=== PATIENT | female | born 1985 | race Caucasian/White ===

== ENCOUNTER → 2017-11-17 | Day surgery (SDC) | payer MEDICARE ==
[2017-11-11 15:11] LABS: BASOPHILS # (AUTO) 0.1 (0.0-0.1); BASOPHILS % 0.5 % (0.0-1.0); EOSINOPHILS # (AUTO) 0.2 (0.0-0.4); EOSINOPHILS % 1.9 % (0.0-6.0); HEMATOCRIT 35.8 % (34.2-44.1); HEMOGLOBIN 10.9 g/dL (12.0-16.0); LYMPHOCYTES # (AUTO) 2.9 (1.0-3.2); LYMPHOCYTES % 24.9 % (18.0-39.1); MEAN CORPUSCULAR HEMOGLOBIN 24.8 pg (28-32); MEAN CORPUSCULAR HGB CONC 30.4 g/dL (31-35); MEAN CORPUSCULAR VOLUME 81.4 fL (81-99); MONOCYTES # (AUTO) 0.7 (0.2-0.8); MONOCYTES % 5.8 % (4.4-11.3); NEUTROPHILS # (AUTO) 7.8 (2.1-6.9); NEUTROPHILS % 66.6 % (38.7-80.0); PLATELET COUNT 337 x10e3/uL (140-360); RED CELL DISTRIBUTION WIDTH 15.7 % (11.7-14.4)
[2017-11-11 15:16] LABS: BILIRUBIN,URINE NEGATIVE (NEGATIVE); CLARITY,URINE CLEAR (CLEAR); COLOR,URINE YELLOW (YELLOW); KETONES,URINE NEGATIVE (NEGATIVE); LEUKOCYTE ESTERASE ,URINE TRACE (NEGATIVE); NITRITE,URINE NEGATIVE (NEGATIVE); PROTEIN,URINE DIPSTICK NEGATIVE (NEGATIVE); URINE UROBILINOGEN 0.2 mg/dL (0.2 - 1)
[~2017-11-17] MED LIST: ALIGN4 MG; ANUSOL-HC25 MG RC; ATARAX PO; CARAFATE1 GM PO; CARAFATE1 GM/10 ML PO; CULTURELLE1 EACH PO; DICYCLOMINE HCL10 MG; FENTANYL CITRATE/PF 100MCG/2 ML INJ ONE; HYDROXYZINE HCL25 MG PO; INVEGA SUS156 MG/1 M IM; INVEGA6 MG; INVEGA9 MG PO; LAMICTAL100 MG; LAMICTAL100 MG PO; LIDOCAINE HCL 2% LOCAL INJ 5 ML SDV VIAL INJ ONE; LINZESS; MIDAZOLAM HCL 2 MG/2 ML VIAL ONE; MONTELUKAST SOD10 MG PO; PROPOFOL IV EMULSION 10 MG/ML 50 ML VIAL ONE; RITALIN10 MG PO; SUCRALFATE1 GM PO; atarax PO
--- OUTSIDE RECORDS SUMMARY | 2017-11-17 13:26 | XMS REPORT ---
Author Author Admin, [place] Organization [facility] Contact Center Address Unknown Phone Unavailable Allergies, Adverse Reactions, Alerts Allergy Name Reaction Description Start Date Severity Status Provider DEPAKOTE Critical Active Trixie Law MD CODEINE Critical Active Trixie Law MD Conditions or Problems Problem Name Problem Code Onset Date Status Entry Date Provider Comment Standard Description Annotate Leukocytosis 288.60 Active Tien Moody MD Leukocytosis, unspecified Contraception management V25.09 Active Trixie Law MD Encounter for other general counseling and advice on contraceptive management Fatigue 780.79 Active Tien Moody MD Other malaise and fatigue Menorrhagia 626.2 Active Tien Moody MD Excessive or frequent menstruation Abnormal uterine bleeding 626.9 Active Trixie Law MD Unspecified disorders of menstruation and other abnormal bleeding from female genital tract Chlamydia cervicitis 099.53 Active Trixie Law MD 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 MORBID OBESITY Active Trixie Law MD Morbid obesity Otitis externa 380.10 Active Tien Moody MD Infective otitis externa, unspecified Acne, mild 706.1 Active Tien Moody MD Other acne Elevated blood pressure 796.2 Active Tien Moody MD Elevated blood pressure reading without diagnosis of hypertension Vaccination Against Influenza V04.81 Active Tien Moody MD Need for prophylactic vaccination and inoculation against influenza Abnormal uterine bleeding 626.9 Active Trixie Law MD Unspecified disorders of menstruation and other abnormal bleeding from female genital tract Vaginal discharge 623.5 Active Trixie Law MD Leukorrhea, not specified as infective ADHD 314.01 Active Trixie Law MD Attention deficit disorder of childhood with hyperactivity Motor [employer] well woman exam V72.31 Active Trixie Law MD Routine gynecological examination Seizure 780.39 Active Trixie Law MD Other convulsions Medication List Medication Instructions Start Date Stop Date Generic Name NDC Status Provider Patient Instruction SPRINTEC 28 0.25-35 MG-MCG ORAL TABLET 1 By Mouth Every daily NORGESTIMATE-ETH ESTRADIOL 78004201109 Active Trixie Law MD Active CORTISPORIN 3.5-70433-0 OTIC SOLUTION 4 drops in affected ear QID [id number]-[id number]-NA 76461813851 Active Tien Moody MD Active DOXYCYCLINE MONOHYDRATE 100 MG ORAL CAPSULE 1 By Mouth BID DOXYCYCLINE MONOHYDRATE 69461773988 Active Trixie Law MD Active ADDERALL 15 MG ORAL TABLET AMPHETAMINE-DEXTROAMPHETAMINE 23097485223 Active Trixie Law MD Active LAMICTAL ODT 200 MG ORAL TABLET DISINTEGRATING LAMOTRIGINE 15165842190 Active Trixie Law MD Active MINASTRIN 24 FE 1-20 MG-MCG(24) ORAL TABLET CHEWABLE 1 By Mouth Every daily MINASTRIN 24 FE 1-20 MG-MCG(24) ORAL TABLET CHEWABLE 1255874 NORETHIN SAAD-ETH ESTRAD-FE Inactive MINASTRIN 24 FE 1-20 MG-MCG(24) ORAL TABLET CHEWABLE 1 By Mouth Every daily NORETHIN SAAD-ETH ESTRAD-FE 16258379448 No Longer Active Trixie Law MD Active Immunizations Vaccine Administration Date Value Standard Description influenza immunization (Flu Vax) has been administered given influenza virus vaccine, unspecified formulation Vital Signs Date Name Value Unit Range Description blood pressure, diastolic 81 mm[Hg] BP lopez blood pressure, systolic 135 mm[Hg] BP sys height E&M 69 [in_us] Bdy height pulse rate E&M 74 /min Heart rate respiratory rate E&M 17 /min Resp rate temperature E&M 97.9 [degF] Body temperature weight E&M 276 [lb_av] Weight Measured blood pressure, diastolic 84 mm[Hg] BP lopez blood pressure, systolic 130 mm[Hg] BP sys height E&M 69 [in_us] Bdy height pulse rate E&M 85 /min Heart rate respiratory rate E&M 18 /min Resp rate temperature E&M 98.3 [degF] Body temperature weight E&M 284.13 [lb_av] Weight Measured blood pressure, diastolic 74 mm[Hg] BP lopez blood pressure, systolic 126 mm[Hg] BP sys height E&M 69 [in_us] Bdy height pulse rate E&M 81 /min Heart rate respiratory rate E&M 18 /min Resp rate temperature E&M 97.7 [degF] Body temperature weight E&M 278 [lb_av] Weight Measured blood pressure, diastolic 85 mm[Hg] BP lopez blood pressure, systolic 135 mm[Hg] BP sys height E&M 69 [in_us] Bdy height pulse rate E&M 82 /min Heart rate respiratory rate E&M 18 /min Resp rate temperature E&M 98.5 [degF] Body temperature weight E&M 282.40 [lb_av] Weight Measured blood pressure, diastolic 85 mm[Hg] BP lopez blood pressure, systolic 129 mm[Hg] BP sys height E&M 69 [in_us] Bdy height pulse rate E&M 86 /min Heart rate respiratory rate E&M 18 /min Resp rate temperature E&M 97.5 [degF] Body temperature weight E&M 284.13 [lb_av] Weight Measured blood pressure, diastolic 84 mm[Hg] BP lopez blood pressure, systolic 142 mm[Hg] BP sys height E&M 69 [in_us] Bdy height pulse rate E&M 73 /min Heart rate respiratory rate E&M 18 /min Resp rate temperature E&M 97.9 [degF] Body temperature weight E&M 280.50 [lb_av] Weight Measured blood pressure, diastolic 86 mm[Hg] BP lopez blood pressure, systolic 133 mm[Hg] BP sys height E&M 69 [in_us] Bdy height pulse rate E&M 69 /min Heart rate respiratory rate E&M 18 /min Resp rate temperature E&M 97.5 [degF] Body temperature weight E&M 281 [lb_av] Weight Measured blood pressure, diastolic 81 mm[Hg] BP lopez blood pressure, systolic 138 mm[Hg] BP sys height E&M 69 [in_us] Bdy height pulse rate E&M 79 /min Heart rate respiratory rate E&M 18 /min Resp rate temperature E&M 98.1 [degF] Body temperature weight E&M 275 [lb_av] Weight Measured blood pressure, diastolic 86 mm[Hg] BP lopez blood pressure, systolic 130 mm[Hg] BP sys height E&M 69 [in_us] Bdy height pulse rate E&M 81 /min Heart rate respiratory rate E&M 18 /min Resp rate temperature E&M 98.2 [degF] Body temperature weight E&M 274 [lb_av] Weight Measured blood pressure, diastolic 81 mm[Hg] BP lopez blood pressure, systolic 134 mm[Hg] BP sys height E&M 69 [in_us] Bdy height pulse rate E&M 68 /min Heart rate respiratory rate E&M 18 /min Resp rate temperature E&M 98.4 [degF] Body temperature weight E&M 265.50 [lb_av] Weight Measured blood pressure, diastolic 81 mm[Hg] BP lopez blood pressure, systolic 130 mm[Hg] BP sys height E&M 69 [in_us] Bdy height pulse rate E&M 67 /min Heart rate respiratory rate E&M 17 /min Resp rate temperature E&M 98.0 [degF] Body temperature weight E&M 270.38 [lb_av] Weight Measured Diagnostic Results Date Name Value Unit Range Description Office Visit: Annual / Family Planning Female Rm#2 - Urinalysis urobilinogen, urine, semiquantitative (dipstick) negative Lab Report: CBC With Differential/Platelet - Hematology basophils as percent of blood leukocytes 0 % Not Estab. Office Visit: Annual / Family Planning Female Rm#2 - Urinalysis pH, urine, semiquantitative 5.0 Lab Report: CBC With Differential/Platelet - Hematology lymphocyte count, blood, automated 2.8 X10E3/UL 10*3/mm3 0.7- 3.1 Office Visit: Annual / Family Planning Female Rm#2 - Urinalysis bilirubin, urine negative Lab Report: CBC With Differential/Platelet - Hematology monocyte count, blood, automated 1.0 X10E3/UL 10*3/uL 0.1-0.9 Lab Report: CBC With Differential/Platelet - Chemistry immature granulocytes, percentage of total cells, blood 0 % Not Estab. Lab Report: CBC With Differential/Platelet - Hematology mean corpuscular volume, RBC 81 fL 79-97 lymphocytes as percent of blood leukocytes 17 % Not Estab. erythrocyte (RBC) count 4.61 X10E6/UL 10*6/mm3 3.77-5.28 Office Visit: Annual / Family Planning Female Rm#2 - Urinalysis appearance, urine clear Lab Report: CBC With Differential/Platelet - Hematology platelet count 420 X10E3/UL 10*3/mm3 048-842 9336/04/06 red blood cell distribution width 14.2 % 12.3-15.4 Lab Report: Ct, Ng, Trich vag by BRENDA - Lab chlamydia DNA probe Negative Negative Lab Report: Ct, Ng, Trich vag by BRENDA - Microbiology Neisseria gonorrhoeae DNA probe Negative Negative Office Visit: Annual / Family Planning Female Rm#2 - Urinalysis glucose, urine, semiquantitative negative Lab Report: CBC With Differential/Platelet - Hematology eosinophils as percent of blood leukocytes 2 % Not Estab. Lab Report: CBC With Differential/Platelet - Chemistry Absolute Neutrophils 11.7 X10E3/UL 10*3/uL 1.4-7.0 Lab Report: CBC With Differential/Platelet - Hematology basophil count, absolute 0.1 x10E3/uL 0.0-0.2 Office Visit: Annual / Family Planning Female Rm#2 - Urinalysis ketones, urine, by test strip negative Lab Report: CBC With Differential/Platelet - Hematology Eosinophil Absolute Count 0.4 X10E3/UL 10*3/uL 0.0-0.4 Office Visit: Annual / Family Planning Female Rm#2 - Urinalysis nitrite, urine, semiquantitative negative Lab Report: CBC With Differential/Platelet - Hematology monocytes as percent of blood leukocytes 7 % Not Estab. Office Visit: Annual / Family Planning Female Rm#2 - Urinalysis specific gravity, urine 1.020 Lab Report: CBC With Differential/Platelet - Hematology mean corpuscular hemoglobin, RBC 26.0 pg 26.6-33.0 Lab Report: Vaginitis/Vaginosis, DNA Probe, Ct, Ng, Trich vag by BRENDA - Urinalysis trichomonas vaginalis, urine Negative Negative Lab Report: CBC With Differential/Platelet - Hematology mean corpuscular hemoglobin concentration, RBC 32.3 G/DL % 31.5- 35.7 Office Visit: Annual / Family Planning Female Rm#2 - Urinalysis leukocyte esterase, urine, by dipstick negative Lab Report: CBC With Differential/Platelet - Hematology hemoglobin, blood 12.0 g/dL 11.1-15.9 neutrophils as percent of blood leukocytes 74 % Not Estab. leukocyte count, blood 16.0 X10E3/UL 10*3/mm3 3.4-10.8 Office Visit: Annual / Family Planning Female Rm#2 - Urinalysis protein, urine, semiquantitative (dipstick) negative Lab Report: CBC With Differential/Platelet - Hematology hematocrit, blood 37.1 % 34.0-46.6 Office Visit: Annual / Family Planning Female Rm#2 - Urinalysis blood in urine (hemoglobin) by dipstick negative Lab Report: CBC With Differential/Platelet, TSH - Chemistry thyroid stimulating hormone, serum 1.110 u[iU]/mL 0.450-4.500 Office Visit: Annual / Family Planning Female Rm#2 - Urinalysis urine color yellow Encounters Date Encounter Provider Code Facility 09:29:08 CDT Est Patient Problem Focus - 62727 Trixie Law MD CPT-61155 [facility] 10:46:37 CDT Est Patient Problem Focus - 68434 Trixie Law MD CPT-37036 [facility] 12:16:47 CDT Est Patient Exp Problem - 08173 Tien Moody MD CPT-27195 [facility] 15:30:05 CDT Est Patient Problem Focus - 71377 Trixie Law MD CPT-32263 [facility] 16:23:02 CDT Est Patient Exp Problem - 52632 Tien Moody MD CPT-86313 [facility] 15:41:00 CDT Est Patient Problem Focus - 10115 Trixie Law MD CPT-33351 [facility] 15:50:32 CONVEYOR OPERATOR Est Patient Exp Problem - 52045 Tien Moody MD CPT-64827 [facility] 15:34:21 CONVEYOR OPERATOR Est Patient Exp Problem - 11242 Tien Moody MD CPT-78655 [facility] 15:25:54 CONVEYOR OPERATOR Est Patient Exp Problem - 21951 Tien Moody MD CPT-72810 [facility] 15:40:14 CONVEYOR OPERATOR Est Patient Problem Focus - 58016 Trixie Law MD CPT-34721 [facility] Procedures Code Procedure Name Date Entry Date Standard Description CPT-75017 IM or SQ Injection 10:46:37 CDT CPT-J1050 Injection, medroxyprogesterone acetate (Depo), 150 mg 10 :46:37 CDT CPT-43693 Admin of Vaccine - Injection - 1 15:25:35 CONVEYOR OPERATOR CPT-10406 INFLUENZA VACCINE QUADRIVALENT 3 YRS PLUS IM 15:25:35 CONVEYOR OPERATOR CPT-50301 Urinalysis - Dip only - In House 15:31:06 CDT CPT-71678 New Patient Well Exam (18 - 39 Yrs) - [id number] 15:31:06 CDT
--- NOTE | 2017-11-17 16:29 | Operative Report ---
DATE OF PROCEDURE: November 17, 2017 REFERRING PHYSICIAN: Dr. Dougie Jackson PROCEDURE PERFORMED: Esophagogastroduodenoscopy with esophageal dilatation and biopsies. INDICATIONS FOR EGD: Dysphagia, nausea, vomiting, history of hematemesis. MEDICATION: Patient was done under MAC. Please see anesthesiologist's note. PROCEDURE: With the patient in the left lateral decubitus position, the flexible fiberoptic Olympus gastroscope was introduced into the esophagus under direct visualization without any difficulty. There was some patchy erythema noted in the distal esophagus. There was a mild stricture noted at the GE junction that was dilated to size 52-Upper Sorbian Lange. The scope was then advanced with ease into the stomach, and patient is status post Prashant-en-Y. There was an approximately 8-mm nodule at the anastomosis, which was biopsied. The anastomosis appeared intact. An approximately 1 cm marginal ulcer with black exudate and a crater compatible with recent hemorrhage was noted. There was no active bleeding. The enteric loop was patent. The scope was then retroflexed into the gastric stump. The cardia appeared to be within normal limits. The scope was then straightened out. It was subsequently withdrawn. Patient tolerated the procedure well. IMPRESSION 1. Distal esophagitis, mild. 2. Esophageal stricture at gastroesophageal junction, dilated to a size 52-Upper Sorbian Lange. 3. Status post Prashant-en-Y anastomosis intact. 4. Approximately, 8-mm nodule anastomosis, biopsied. 5. Approximately, 1 cm marginal ulcer with stigmata of recent hemorrhage. There was no active bleeding. PLAN: Follow up histology. Initiate Protonix 40 mg 1 p.o. a.c. b.i.d. Continue Carafate 1 g p.o. a.c. t.i.d. and at bedtime. Job#: [id number] RI cc:DOUGIE JACKSON DO
== END | disposition home or self-care (01) ==
LOC: OR 13:23
PROVIDERS: ATTEND Internal Medicine Gastroenterology
DX: K22.2 Esophageal obstruction (principal); K25.9 Gastric ulcer, unspecified as acute or chronic, without hemorrhage or perforation; K31.89 Other diseases of stomach and duodenum; K20.9 Esophagitis, unspecified; K21.9 Gastro-esophageal reflux disease without esophagitis; Z98.84 Bariatric surgery status; K58.9 Irritable bowel syndrome, unspecified; G40.909 Epilepsy, unspecified, not intractable, without status epilepticus; N20.0 Calculus of kidney; F31.9 Bipolar disorder, unspecified; F20.9 Schizophrenia, unspecified; F41.9 Anxiety disorder, unspecified; Z88.5 Allergy status to narcotic agent; Z88.8 Allergy status to other drugs, medicaments and biological substances; Z01.812 Encounter for preprocedural laboratory examination; Z68.39 Body mass index [BMI] 39.0-39.9, adult; Z87.440 Personal history of urinary (tract) infections
CPT/HCPCS: 36415; 43239; 43450; 81003; 81025; 85025; 88305; 88312; J2001; J2250

== ENCOUNTER 2017-11-23 15:27 | Emergency (ER) | payer MEDICARE ==
[~2017-11-23] VITALS: Ht 175.3 cm; Wt 108.9 kg
[~2017-11-23 15:27] MED LIST changes: -FENTANYL CITRATE/PF 100MCG/2 ML INJ ONE; -LIDOCAINE HCL 2% LOCAL INJ 5 ML SDV VIAL INJ ONE; -MIDAZOLAM HCL 2 MG/2 ML VIAL ONE; -PROPOFOL IV EMULSION 10 MG/ML 50 ML VIAL ONE
--- OUTSIDE RECORDS SUMMARY | 2017-11-23 15:30 | XMS REPORT ---
Author Author Admin, [place] Organization [facility] Contact Center Address Unknown Phone Unavailable [...] Attention deficit disorder of childhood with hyperactivity Water Pl[employer] well woman exam V72.31 Active Trixie Law MD Routine gynecological examination Seizure 780.39 Active Trixie Law MD Other convulsions Medication List Medication Instructions Start Date Stop Date Generic Name NDC Status Provider Patient Instruction SPRINTEC 28 0.25-35 MG-MCG ORAL TABLET 1 By Mouth Every daily NORGESTIMATE-ETH ESTRADIOL 36802441407 Active Trixie Law MD Active CORTISPORIN 3.5-89855-0 OTIC SOLUTION 4 drops in affected ear QID [id number]-[id number] 71774648642 Active Tien Moody MD Active DOXYCYCLINE MONOHYDRATE 100 MG ORAL CAPSULE 1 By Mouth BID DOXYCYCLINE MONOHYDRATE 35544192510 Active Trixie Law MD Active ADDERALL 15 MG ORAL TABLET AMPHETAMINE-DEXTROAMPHETAMINE 62058116060 Active Trixie Law MD Active LAMICTAL ODT 200 MG ORAL TABLET DISINTEGRATING LAMOTRIGINE 41092190131 Active Trixie Law MD Active MINASTRIN 24 FE 1-20 MG-MCG(24) ORAL TABLET CHEWABLE 1 By Mouth Every daily MINASTRIN 24 FE 1-20 MG-MCG(24) ORAL TABLET CHEWABLE 7635968 NORETHIN SAAD-ETH ESTRAD-FE Inactive MINASTRIN 24 FE 1-20 MG-MCG(24) ORAL TABLET CHEWABLE 1 By Mouth Every daily NORETHIN SAAD-ETH ESTRAD-FE 60805513346 No Longer Active Trixie Law MD Active [...] - Hematology platelet count 420 X10E3/UL 10*3/mm3 377-863 7546/04/06 red blood cell distribution width 14.2 % [...] 09:29:08 CDT Est Patient Problem Focus - 11257 Trixie Law MD CPT-94156 [facility] 10:46:37 CDT Est Patient Problem Focus - 35143 Trixie Law MD CPT-13788 [facility] 12:16:47 CDT Est Patient Exp Problem - 21529 Tien Moody MD CPT-53341 [facility] 15:30:05 CDT Est Patient Problem Focus - 15179 Trixie Law MD CPT-12720 [facility] 16:23:02 CDT Est Patient Exp Problem - 05499 Tien Moody MD CPT-61670 [facility] 15:41:00 CDT Est Patient Problem Focus - 26008 Trixie Law MD CPT-24028 [facility] 15:50:32 EMERGENCY DOCTOR Est Patient Exp Problem - 31162 Tien Moody MD CPT-94929 [facility] 15:34:21 EMERGENCY DOCTOR Est Patient Exp Problem - 93483 Tien Moody MD CPT-47372 [facility] 15:25:54 EMERGENCY DOCTOR Est Patient Exp Problem - 30477 Tien Moody MD CPT-58879 [facility] 15:40:14 EMERGENCY DOCTOR Est Patient Problem Focus - 01643 Trixie Law MD CPT-99540 [facility] Procedures Code Procedure Name Date Entry Date Standard Description CPT-16667 IM or SQ Injection 10:46:37 CDT CPT-J1050 Injection, medroxyprogesterone acetate (Depo), 150 mg 10 :46:37 CDT CPT-15245 Admin of Vaccine - Injection - 1 15:25:35 EMERGENCY DOCTOR CPT-68343 INFLUENZA VACCINE QUADRIVALENT 3 YRS PLUS IM 15:25:35 EMERGENCY DOCTOR CPT-18944 Urinalysis - Dip only - In House 15:31:06 CDT CPT-57543 New Patient Well Exam (18 - 39 Yrs) - [id number] 15:31:06 CDT
[2017-11-23 16:46] LABS: BILIRUBIN,URINE NEGATIVE (NEGATIVE); CLARITY,URINE CLEAR (CLEAR); COLOR,URINE STRAW (YELLOW); KETONES,URINE NEGATIVE (NEGATIVE); LEUKOCYTE ESTERASE ,URINE TRACE (NEGATIVE); NITRITE,URINE NEGATIVE (NEGATIVE); PROTEIN,URINE DIPSTICK NEGATIVE (NEGATIVE); URINE UROBILINOGEN 0.2 mg/dL (0.2 - 1)
[2017-11-23 16:47] LABS: PREGNANCY TEST, URINE NEGATIVE (NEGATIVE)
[2017-11-23 16:55] LABS: EPITHELIAL CELLS,URINE MODERATE /LPF
[2017-11-23 16:57] LABS: BACTERIA,URINE FEW /HPF; RBC,URINE 0-5 /HPF (0-5); WBC,URINE (MAN) 0-5 /HPF (0-5)
[2017-11-23] MEDS ORDERED: MECLIZINE HCL 12.5 MG TAB PO ONE (19:30)
[2017-11-23] MEDS ORDERED: ONDANSETRON HCL 4 MG ORAL DISINTEGRATING TAB PO ONE (19:30)
--- NOTE | 2017-11-23 19:31 | Diagnostic Imaging Report ---
History: Headache Comparison studies: None Technique: Axial images were obtained from the skull base to the vertex. Coronal and sagittal reconstructions obtained from the axial data. Findings: Scalp/skull: No abnormalities. No fractures, blastic or lytic lesions. Extra-axial spaces: No masses. No fluid collections. Brain sulci: Appropriate for age. Ventricles: Normal in size and configuration. No hydrocephalus. Parenchyma: No abnormal densities. Linear streak artifact over the left parieto-occipital region which is not to be mistaken for subarachnoid hemorrhage. No masses, hemorrhage, acute or chronic cortical vascular insults. Sellar/suprasellar region: No abnormalities Craniocervical junction: Mildly low-lying right cerebellar tonsil without Chiari one malformation. IMPRESSION: No acute abnormalities. Preliminary report provided by Dr. Ab Maravilla on 11/23/2017 at 1903 hours. The images and preliminary report were reviewed and signed by Dr. Karen Hernandez, neuroradiology faculty, on 11/23/2017 at 1927 hours. Signed by: Dr. Karen Hernandez M.D. on 11/23/2017 7:27 PM
[2017-11-23] MEDS ORDERED: SODIUM CHLORIDE 0.9% 1000ML 1,000 ML IV ONE (19:45)
[2017-11-23 19:48] LABS: HEMATOCRIT 33.5 % (34.2-44.1); HEMOGLOBIN 10.5 g/dL (12.0-16.0); MEAN CORPUSCULAR HEMOGLOBIN 25.7 pg (28-32); MEAN CORPUSCULAR HGB CONC 31.3 g/dL (31-35); MEAN CORPUSCULAR VOLUME 81.9 fL (81-99); PLATELET COUNT 303 x10e3/uL (140-360); RED BLOOD COUNT 4.09 x10e6/uL (3.6-5.1); RED CELL DISTRIBUTION WIDTH 16.3 % (11.7-14.4)
[2017-11-23 19:49] LABS: BASOPHILS # (AUTO) 0.1 (0.0-0.1); BASOPHILS % 0.5 % (0.0-1.0); EOSINOPHILS # (AUTO) 0.4 (0.0-0.4); EOSINOPHILS % 3.5 % (0.0-6.0); LYMPHOCYTES # (AUTO) 2.8 (1.0-3.2); LYMPHOCYTES % 26.1 % (18.0-39.1); MONOCYTES # (AUTO) 0.8 (0.2-0.8); MONOCYTES % 6.9 % (4.4-11.3); NEUTROPHILS # (AUTO) 6.8 (2.1-6.9); NEUTROPHILS % 62.7 % (38.7-80.0)
[2017-11-23 20:39] LABS: ALANINE AMINOTRANSFERASE 18 IU/L (0-55); ANION GAP 13.6 mmol/L (8-16); BLOOD UREA NITROGEN 11 mg/dL (7-26); BUN/CREATININE RATIO 14 (6-25); CALCIUM 9.4 mg/dL (8.4-10.2); CARBON DIOXIDE 22 mmol/L (22-29); CHLORIDE 107 mmol/L (98-107); CREATININE, SERUM 0.78 mg/dL (0.57-1.11); EST GLOMERULAR FILTRATION RATE > 60 ML/MIN (60-); GLUCOSE 74 mg/dL (74-118); POTASSIUM 3.6 mmol/L (3.5-5.1); SODIUM 139 mmol/L (136-145)
[2017-11-23 20:40] LABS: ALBUMIN 3.7 g/dL (3.5-5.0); ALBUMIN/GLOBULIN RATIO 1.2 (0.8-2.0); ALKALINE PHOSPHATASE 89 IU/L (40-150); LIPASE 10 U/L (8-78); THYROID STIMULATING HORMONE 1.329 uIU/mL (0.350-4.940)
[2017-11-23 20:52] VITALS: BP 121/72
--- NOTE | 2017-11-23 21:15 | Diagnostic Imaging Report ---
RADIOGRAPH(S) OF THE ABDOMEN AND PELVIS, 3 view(s) HISTORY: Abdominal pain, ulcer COMPARISON: None available. FINDINGS: Artifacts project at the left upper quadrant the abdomen. No specific evidence of obstruction or ileus. No definite urinary tract calcification. Metallic surgical clips within the upper abdomen. The liver shadow appears prominent. The bones are partially obscured by stool and overlying bowel gas. IMPRESSION: Nonobstructive bowel gas pattern. Signed by: Dr. William Swanson D.O., M.M.M. on 11/23/2017 9:11 PM
== END 2017-11-23 21:07 | disposition home or self-care (01) ==
LOC: ER 15:27
DX: R42 Dizziness and giddiness (principal); R11.0 Nausea; H81.12 Benign paroxysmal vertigo, left ear; F20.9 Schizophrenia, unspecified; F41.9 Anxiety disorder, unspecified
CPT/HCPCS: 36415; 70450; 74022; 80053; 81001; 81025; 83690; 84443; 85025; 87086; 99283; J7030

== ENCOUNTER → 2020-03-10 | Day surgery (SDC) | payer MEDICARE, OTHER ==
[~2020-03-10] MED LIST changes: +FENTANYL CITRATE/PF 100MCG/2 ML INJ ONE; +GLUCAGON FOR INJ 1 MG VIAL ONE; +HYOSCYAMINE 0.125 MG TAB ONE; +INVEGA SUS234 MG/1.5 INJ; +INVEGA6 MG PO; +IRON PO; +MIDAZOLAM HCL 2 MG/2 ML VIAL ONE; +PROPOFOL IV EMULSION 10 MG/ML 20 ML VIAL ONE
[2020-03-10 13:40] VITALS: BP 123/68
--- NOTE | 2020-03-10 14:20 | Operative Report ---
DATE OF PROCEDURE: 03/10/2020 SURGEON: Hector Garcia MD PROCEDURES: EGD with biopsies and colonoscopy with biopsies. INDICATIONS FOR EGD: Heartburn, bloating, vomiting. INDICATIONS FOR COLONOSCOPY: Lower abdominal pain, diarrhea. MEDICATIONS: The patient was done under MAC, please see anesthesiologist's note. PROCEDURE IN DETAIL: With the patient in the left lateral decubitus position, a flexible fiberoptic Olympus gastroscope was introduced into the esophagus under direct visualization without any difficulty. The esophagus appeared to be within normal limits. The scope was then advanced with ease into the stomach and the patient is status post Prashant-en-Y. There was some evidence of mild inflammatory changes in the gastric stump and biopsies were obtained. Anastomosis was intact and was patent, and there was a minute nodule noted at the anastomosis that was biopsied. The scope was subsequently withdrawn and the patient tolerated the procedure well. IMPRESSION: 1. Normal esophagus. 2. Gastric stump gastritis, biopsied. 3. Status post Prashant-en-Y. 4. Minute nodule anastomosis, biopsied. PLAN: Follow up histology. Initiate Protonix 40 mg one p.o. q.a.m. before meals. Continue Carafate 1 g p.o. before meals t.i.d. and at bedtime. The patient was then turned around and after adequate lubrication of the anal canal, a flexible fiberoptic Olympus colonoscope was inserted into the rectum with ease and advanced all the way to the cecum. Prep overall was suboptimal to poor with [id number] amount of retained fecal material in the colon. Whatever was visualized, the mucosa overlying the cecum appeared to be within normal limits. The ileocecal valve was intubated and the scope was advanced into the terminal ileum. Two aphthous-like ulcers were noted and biopsies were obtained. The scope was then withdrawn back into the colon. It was then withdrawn slowly and whatever was visualized the mucosa overlying the ascending, transverse, descending, sigmoid, and rectum revealed some patchy mild inflammatory changes and biopsies were obtained. The scope was then retroflexed into the distal rectum and the area around the dentate line appeared to be within normal limits. The scope was then straightened out and it was subsequently withdrawn after securing an adequate stool specimen that was sent for the appropriate stool studies. The patient tolerated the procedure well. IMPRESSION: 1. Suboptimal to poor prep. 2. Mild patchy colitis. 3. Proctitis, mild. PLAN: Follow up histology. Follow up stool studies. Initiate Bentyl 20 mg one p.o. t.i.d. Check IBD panel, CRP, and sedimentation rate. MD ARNOLDO Chanel/MODL /[id number] cc: Anish Vo DO
[2020-03-10 14:52] LABS: WBC,FECAL (FECAL LACTOFERRIN) POSITIVE (NEGATIVE)
[2020-03-11 06:32] LABS: C DIFFICILE TOXIN A&B AMP PROB NEGATIVE (NEGATIVE)
== END | disposition home or self-care (01) ==
LOC: OR 09:28
PROVIDERS: ATTEND Internal Medicine Gastroenterology
DX: K52.9 Noninfective gastroenteritis and colitis, unspecified (principal); Z86.010 Personal history of colon polyps; K29.50 Unspecified chronic gastritis without bleeding; K20.8 Other esophagitis; K31.89 Other diseases of stomach and duodenum; K62.89 Other specified diseases of anus and rectum; K21.9 Gastro-esophageal reflux disease without esophagitis; K44.9 Diaphragmatic hernia without obstruction or gangrene; K28.9 Gastrojejunal ulcer, unspecified as acute or chronic, without hemorrhage or perforation; Z98.84 Bariatric surgery status; I10 Essential (primary) hypertension; E66.01 Morbid (severe) obesity due to excess calories; G40.909 Epilepsy, unspecified, not intractable, without status epilepticus; F20.9 Schizophrenia, unspecified; F31.9 Bipolar disorder, unspecified; F41.9 Anxiety disorder, unspecified; Z88.6 Allergy status to analgesic agent; Z88.8 Allergy status to other drugs, medicaments and biological substances; Z01.810 Encounter for preprocedural cardiovascular examination; Z01.812 Encounter for preprocedural laboratory examination; Z11.59 Encounter for screening for other viral diseases; Z68.41 Body mass index [BMI] 40.0-44.9, adult; Z87.440 Personal history of urinary (tract) infections
CPT/HCPCS: 36415; 43239; 45380; 81025; 83630; 83993; 85651; 86140; 86256; 86671; 87045; 87177; 87328; 87493; 93005; J1610; J2250; J2704; J3010; U0002; 45378

== ENCOUNTER → 2020-07-28 | Day surgery (SDC) | payer MEDICARE ==
[~2020-07-28] MED LIST changes: -GLUCAGON FOR INJ 1 MG VIAL ONE; -HYOSCYAMINE 0.125 MG TAB ONE; +KETAMINE HCL INJ 50 MG/ML 10 ML VIAL ONE; -PROPOFOL IV EMULSION 10 MG/ML 20 ML VIAL ONE
[2020-07-28 15:35] VITALS: BP 138/93
== END | disposition home or self-care (01) ==
LOC: ENDO 12:12
PROVIDERS: ATTEND Internal Medicine Gastroenterology
DX: K29.50 Unspecified chronic gastritis without bleeding (principal); K29.60 Other gastritis without bleeding; K25.9 Gastric ulcer, unspecified as acute or chronic, without hemorrhage or perforation; K92.89 Other specified diseases of the digestive system; K92.0 Hematemesis; K20.90 Esophagitis, unspecified without bleeding; Z98.84 Bariatric surgery status; K52.9 Noninfective gastroenteritis and colitis, unspecified; I44.7 Left bundle-branch block, unspecified; I10 Essential (primary) hypertension; Z88.6 Allergy status to analgesic agent; Z01.810 Encounter for preprocedural cardiovascular examination; Z01.812 Encounter for preprocedural laboratory examination; Z20.822 Contact with and (suspected) exposure to COVID-19; Z68.41 Body mass index [BMI] 40.0-44.9, adult
CPT/HCPCS: 43239; 43450; 81025; 93005; J2250; J3010; U0002

== ENCOUNTER → 2021-11-10 | Day surgery (SDC) | payer MEDICARE ==
[~2021-11-10] MED LIST changes: -KETAMINE HCL INJ 50 MG/ML 10 ML VIAL ONE; +LIDOCAINE HCL 2% LOCAL INJ 5 ML SDV VIAL INJ ONE; +METOCLOPRAMIDE HCL 10 MG/2ML VIAL ONE; +POVIDONE IODINE 0.05% 0.05 % ML PO ONE; +PROPOFOL IV EMULSION 10 MG/ML 20 ML VIAL ONE; +PROTONIX20 MG PO
[2021-11-10 14:45] VITALS: BP 141/80
== END | disposition home or self-care (01) ==
LOC: ENDO 11:00
PROVIDERS: ATTEND Internal Medicine Gastroenterology
DX: R13.10 Dysphagia, unspecified (principal); K25.9 Gastric ulcer, unspecified as acute or chronic, without hemorrhage or perforation; K29.70 Gastritis, unspecified, without bleeding; K31.89 Other diseases of stomach and duodenum; Z98.84 Bariatric surgery status; Z86.010 Personal history of colon polyps; K59.09 Other constipation; Z71.3 Dietary counseling and surveillance; Z71.89 Other specified counseling; F20.9 Schizophrenia, unspecified; G40.909 Epilepsy, unspecified, not intractable, without status epilepticus; E66.9 Obesity, unspecified; F41.9 Anxiety disorder, unspecified; Z88.6 Allergy status to analgesic agent; Z01.812 Encounter for preprocedural laboratory examination; Z20.822 Contact with and (suspected) exposure to COVID-19; Z79.899 Other long term (current) drug therapy; Z68.41 Body mass index [BMI] 40.0-44.9, adult; Z87.440 Personal history of urinary (tract) infections
CPT/HCPCS: 36415; 43239; 43450; 81025; 82948; C9113; J2001; J2250; J2704; J2765; J3010; U0002

== ENCOUNTER 2022-08-23 13:26 | Emergency (ER) | payer MEDICARE ==
[~2022-08-23] VITALS: Ht 175.3 cm; Wt 108.9 kg
[~2022-08-23 13:26] MED LIST changes: -FENTANYL CITRATE/PF 100MCG/2 ML INJ ONE; -LIDOCAINE HCL 2% LOCAL INJ 5 ML SDV VIAL INJ ONE; -METOCLOPRAMIDE HCL 10 MG/2ML VIAL ONE; -MIDAZOLAM HCL 2 MG/2 ML VIAL ONE; -POVIDONE IODINE 0.05% 0.05 % ML PO ONE; -PROPOFOL IV EMULSION 10 MG/ML 20 ML VIAL ONE
[2022-08-23 13:50] LABS: BASOPHILS # (AUTO) 0.1 (0.0-0.1); BASOPHILS % 0.3 % (0.0-1.0); EOSINOPHILS # (AUTO) 0.5 (0.0-0.4); EOSINOPHILS % 3.5 % (0.0-6.0); HEMATOCRIT 35.1 % (34.2-44.1); HEMOGLOBIN 10.5 g/dL (12.0-16.0); LYMPHOCYTES # (AUTO) 2.9 (1.0-3.2); LYMPHOCYTES % 20.5 % (18.0-39.1); MEAN CORPUSCULAR HEMOGLOBIN 23.6 pg (28-32); MEAN CORPUSCULAR HGB CONC 29.9 g/dL (31-35); MEAN CORPUSCULAR VOLUME 79.1 fL (81-99); MONOCYTES # (AUTO) 0.7 (0.2-0.8); MONOCYTES % 5.1 % (4.4-11.3); NEUTROPHILS % 69.9 % (38.7-80.0); PLATELET COUNT 375 x10e3/uL (140-360); RED BLOOD COUNT 4.44 x10e6/uL (3.6-5.1); RED CELL DISTRIBUTION WIDTH 14.8 % (11.7-14.4)
[2022-08-23 14:29] LABS: ANION GAP 16.2 mmol/L (8-16); CREATININE, SERUM 0.9 mg/dL (0.57-1.11); POTASSIUM 4.2 mmol/L (3.5-5.1)
[2022-08-23 15:25] LABS: EOSINOPHILS % (MANUAL) 2 % (0-7); LYMPHOCYTES % (MANUAL) 15 % (19-48); MONOCYTES % (MANUAL) 2 % (3.4-9.0); NEUTROPHILS % (MANUAL) 80 % (40-74); PLATELET ESTIMATE ADEQUATE; PLATELET MORPHOLOGY COMMENT NORMAL; RBC MORPHOLOGY COMMENT NORMAL
== END 2022-08-23 16:16 | disposition home or self-care (01) ==
LOC: ER 13:31
DX: R42 Dizziness and giddiness (principal); D72.829 Elevated white blood cell count, unspecified; F41.9 Anxiety disorder, unspecified; G40.909 Epilepsy, unspecified, not intractable, without status epilepticus; F20.9 Schizophrenia, unspecified; F90.9 Attention-deficit hyperactivity disorder, unspecified type
CPT/HCPCS: 36415; 80048; 84702; 85025; 99284

== ENCOUNTER 2022-08-28 12:40 | Emergency (ER) | payer MEDICARE ==
[~2022-08-28] VITALS: Ht 175.3 cm; Wt 108.9 kg
[2022-08-28 14:12] LABS: BASOPHILS # (AUTO) 0.1 (0.0-0.1); BASOPHILS % 0.5 % (0.0-1.0); EOSINOPHILS # (AUTO) 0.4 (0.0-0.4); EOSINOPHILS % 2.4 % (0.0-6.0); HEMOGLOBIN 10.5 g/dL (12.0-16.0); LYMPHOCYTES # (AUTO) 2.5 (1.0-3.2); LYMPHOCYTES % 16.9 % (18.0-39.1); MEAN CORPUSCULAR HEMOGLOBIN 23.5 pg (28-32); MEAN CORPUSCULAR VOLUME 78.5 fL (81-99); MONOCYTES # (AUTO) 0.6 (0.2-0.8); MONOCYTES % 4.2 % (4.4-11.3); NEUTROPHILS % 75.6 % (38.7-80.0); PLATELET COUNT 393 x10e3/uL (140-360); RED BLOOD COUNT 4.46 x10e6/uL (3.6-5.1); RED CELL DISTRIBUTION WIDTH 14.8 % (11.7-14.4)
[2022-08-28 14:24] LABS: PROTHROMBIN TIME 13.7 seconds (11.9-14.5)
[2022-08-28 14:32] LABS: CLARITY,URINE HAZY (CLEAR); COLOR,URINE YELLOW (YELLOW); LEUKOCYTE ESTERASE ,URINE NEGATIVE (NEGATIVE); NITRITE,URINE NEGATIVE (NEGATIVE); PROTEIN,URINE DIPSTICK NEGATIVE (NEGATIVE)
[2022-08-28 14:33] LABS: ALBUMIN 3.7 g/dL (3.5-5.0); ALBUMIN/GLOBULIN RATIO 0.9 (0.8-2.0); AMPHETAMINES SCREEN,URINE NEGATIVE (NEGATIVE); ANION GAP 16.1 mmol/L (8-16); BENZODIAZEPINES SCREEN,URINE NEGATIVE (NEGATIVE); CALCIUM 9.6 mg/dL (8.4-10.2); CREATININE, SERUM 0.74 mg/dL (0.57-1.11); KETONES,URINE NEGATIVE (NEGATIVE); PHENCYCLIDINE SCREEN,URINE NEGATIVE (NEGATIVE); POTASSIUM 4.1 mmol/L (3.5-5.1); URINE UROBILINOGEN 0.2 mg/dL (0.2 - 1)
[2022-08-28 14:36] LABS: BACTERIA,URINE FEW /HPF; EPITHELIAL CELLS,URINE FEW /LPF; RBC,URINE 0-5 /HPF (0-5); WBC,URINE (MAN) 0-5 /HPF (0-5)
[2022-08-28 16:24] LABS: SALICYLATE < 5.0 mg/dL (0-30)
== END 2022-08-28 17:49 | disposition home or self-care (01) ==
LOC: ER 12:47
DX: F20.9 Schizophrenia, unspecified (principal); G40.909 Epilepsy, unspecified, not intractable, without status epilepticus; F41.9 Anxiety disorder, unspecified; F90.9 Attention-deficit hyperactivity disorder, unspecified type; Z20.822 Contact with and (suspected) exposure to COVID-19
CPT/HCPCS: 36415; 70450; 71045; 73502; 73562; 80053; 80307; 80320; 80329 ×2; 81001; 84484; 84702; 85025; 85610; 93005; 99285; U0002

== ENCOUNTER 2023-07-21 13:19 | Emergency (ER) | payer MEDICARE ==
[~2023-07-21] VITALS: Ht 175.3 cm; Wt 108.9 kg
[2023-07-21 14:42] LABS: BASOPHILS # (AUTO) 0.1 (0.0-0.1); BASOPHILS % 0.4 % (0.0-1.0); EOSINOPHILS # (AUTO) 0.1 (0.0-0.4); EOSINOPHILS % 0.7 % (0.0-6.0); HEMOGLOBIN 11.7 g/dL (12.0-16.0); LYMPHOCYTES # (AUTO) 2.2 (1.0-3.2); LYMPHOCYTES % 16.4 % (18.0-39.1); MEAN CORPUSCULAR HEMOGLOBIN 25.1 pg (28-32); MEAN CORPUSCULAR VOLUME 83.5 fL (81-99); MONOCYTES # (AUTO) 0.6 (0.2-0.8); MONOCYTES % 4.1 % (4.4-11.3); NEUTROPHILS # (AUTO) 10.5 (2.1-6.9); PLATELET COUNT 350 x10e3/uL (140-360); RED BLOOD COUNT 4.67 x10e6/uL (3.6-5.1); RED CELL DISTRIBUTION WIDTH 14.8 % (11.7-14.4); WHITE BLOOD COUNT 13.39 x10e3/uL (4.8-10.8)
[2023-07-21 15:00] LABS: ALBUMIN 3.7 g/dL (3.5-5.0); BILIRUBIN,TOTAL 0.2 mg/dL (0.2-1.2); CALCIUM 9.1 mg/dL (8.4-10.2); CREATININE, SERUM 0.81 mg/dL (0.57-1.11); TOTAL PROTEIN 7.3 g/dL (6.5-8.1)
[2023-07-21 17:13] VITALS: BP 135/75; PULSE 84; RESP 16; TEMP 97.9; O2SAT 100
[2023-07-23] MEDS ORDERED: MECLIZINE HCL12.5 MG PO (21:17)
== END 2023-07-21 17:02 | disposition home or self-care (01) ==
LOC: ER 13:25
DX: R11.2 Nausea with vomiting, unspecified (principal); G40.909 Epilepsy, unspecified, not intractable, without status epilepticus; F41.9 Anxiety disorder, unspecified; F20.9 Schizophrenia, unspecified; F90.9 Attention-deficit hyperactivity disorder, unspecified type; Z87.19 Personal history of other diseases of the digestive system
CPT/HCPCS: 36415; 80053; 82948; 84702; 85025; 99284